=== PATIENT | female | born 1990 | race Native Hawaiian/Other Pacific Islander ===

== ENCOUNTER → 2018-07-27 16:18 | Outpatient (CLI) | payer OTHER | END | disposition home or self-care (01) | LOC: AMB 16:18 | DX: R21 Rash and other nonspecific skin eruption (principal); V59.9XXA Occupant (driver) (passenger) of pick-up truck or van injured in unspecified traffic accident, initial encounter; Y93.89 Activity, other specified; Y92.89 Other specified places as the place of occurrence of the external cause ==